=== PATIENT | female | born 1945 | race Caucasian/White ===

== ENCOUNTER → 2016-09-28 | Outpatient (CLI) | payer MEDICARE ==
--- NOTE | 2016-10-02 10:28 | MM ---
Reason for exam: screening (asymptomatic). Last mammogram was performed 1 year and 1 month ago. History: Patient is postmenopausal and history of other cancer. Family history of breast cancer in grandmother at age 80 and breast cancer in 2 cousins. Physical Findings: A clinical breast exam by your physician is recommended on an annual basis and results should be correlated with mammographic findings. MG Screening Mammo w CAD Bilateral CC and MLO view(s) were taken. Prior study comparison: September 03, 2015, bilateral MG screening mammo w CAD. April 21, 2014, bilateral MG screening mammo w CAD. The breast tissue is heterogeneously dense. This may lower the sensitivity of mammography. There is no discrete abnormality. No significant changes when compared with prior studies. ASSESSMENT: Negative, BI-RAD 1 RECOMMENDATION: Routine screening mammogram of both breasts in 1 year.
== END | disposition home or self-care (01) ==
LOC: RADMAMWWP 12:48
PROVIDERS: ATTEND Family Medicine
DX: Z12.31 Encounter for screening mammogram for malignant neoplasm of breast (principal)

== ENCOUNTER → 2017-12-14 | Outpatient (CLI) | payer MEDICARE ==
--- NOTE | 2017-12-17 09:52 | MM ---
Reason for exam: screening (asymptomatic). Last mammogram was performed 1 year and 3 months ago. History: Patient is postmenopausal and history of other cancer. Family history of breast cancer in grandmother at age 80 and breast cancer in 2 cousins. Physical Findings: A clinical breast exam by your physician is recommended on an annual basis and results should be correlated with mammographic findings. MG Screening Mammo w CAD Bilateral CC and MLO view(s) were taken. Prior study comparison: September 28, 2016, bilateral MG screening mammo w CAD. September 03, 2015, bilateral MG screening mammo w CAD. There are scattered fibroglandular densities. No significant changes when compared with prior studies. ASSESSMENT: Benign, BI-RAD 2 RECOMMENDATION: Routine screening mammogram of both breasts in 1 year.
== END | disposition home or self-care (01) ==
LOC: RADMAMWWP 14:13
PROVIDERS: ATTEND Family Medicine
DX: Z12.31 Encounter for screening mammogram for malignant neoplasm of breast (principal)
CPT/HCPCS: 77067

== ENCOUNTER → 2020-04-26 | Outpatient (CLI) | payer MEDICARE ==
--- NOTE | 2020-04-28 09:41 | MM ---
Reason for exam: screening (asymptomatic). Last mammogram was performed 2 years and 4 months ago. History: Patient is postmenopausal and history of other cancer. Family history of breast cancer in grandmother at age 80 and breast cancer in 2 cousins. Physical Findings: A clinical breast exam by your physician is recommended on an annual basis and results should be correlated with mammographic findings. MG 3D Screening Mammo W/Cad Bilateral CC and MLO view(s) were taken. Prior study comparison: December 14, 2017, bilateral MG screening mammo w CAD. September 28, 2016, bilateral MG screening mammo w CAD. There are scattered fibroglandular densities. No significant changes when compared with prior studies. ASSESSMENT: Benign, BI-RAD 2 RECOMMENDATION: Routine screening mammogram of both breasts in 1 year.
== END | disposition home or self-care (01) ==
LOC: RADMAMWWP 14:30
PROVIDERS: ATTEND Nurse Practitioner Family
DX: Z12.31 Encounter for screening mammogram for malignant neoplasm of breast (principal)
CPT/HCPCS: 77063; 77067

== ENCOUNTER → 2021-07-20 | Outpatient (CLI) | payer MEDICARE ==
--- NOTE | 2021-07-20 15:02 | BD ---
EXAMINATION TYPE: Axial Bone Density DATE OF EXAM: 07/20/2021 COMPARISON: NONE CLINICAL HISTORY: Height: 61 Weight: 126.3 FRAX RISK QUESTIONS: Alcohol (3 or more units per day): no Family History (Parent hip fracture): no Glucocorticoids (More than 3mos): no (Ex: prednisone, prednisolone, methylprednisolone, dexamethasone, and hydrocortisone). History of Fracture in Adulthood: yes Secondary Osteoporosis: 1. Type 1 Diabetes: no 2. Hyperthyroidism: no 3. Menopause before 45: no 4. Malnutrition: no 5. Chronic liver disease: no Rheumatoid Arthritis: no Current Tobacco Use: no RISK FACTORS HISTORY OF: Surgery to Spine/Hip(right/left)/Wrist (right/left): no Family History of Osteoporosis: no Active: yes Diet low in dairy products/other sources of calcium: no Postmenopausal woman: yes Lost more than 2 inches in height since high school: no MEDICATIONS: blood pressure, cholesterol meds Additional History: EXAM MEASUREMENTS: Bone mineral densitometry was performed using the [employer] System. Bone mineral density as measured about the Lumbar spine is: ----- L1-L4(G/cm2): 1.077 T Score Values are as follows: ----- L2: -1.0 ----- L3: -0.4 ----- L4: -1.1 ----- L1-L4: -0.9 Bone mineral density has: increased 2.3 % since study of: 10.21.2015 Bone mineral density about the R hip (g/cm2): 0.716 Bone mineral density about the L hip (g/cm2): .0678 T Score values are as follows: -----R Neck: -2.3 -----L Neck: -2.6 -----R Total: -1.7 -----L Total: -1.8 Bone mineral density has: decreased -7.8 % since study of: 10.21.2015 IMPRESSION: Osteoporosis (T Score less than -2.5). There is increased fracture risk and therapy is usually indicated based on age. Re-Screen 1-2 years. NOTE: T-SCORE=SD OF THE YOUNG ADULT MEAN.
--- NOTE | 2021-07-22 11:27 | MM ---
Reason for exam: screening (asymptomatic). Last mammogram was performed 1 year and 3 months ago. History: Patient is postmenopausal and history of other cancer. Family history of breast cancer in grandmother at age 80 and breast cancer in 2 cousins. Physical Findings: A clinical breast exam by your physician is recommended on an annual basis and results should be correlated with mammographic findings. MG 3D Screening Mammo W/Cad Bilateral CC and MLO view(s) were taken. Prior study comparison: April 26, 2020, bilateral MG 3d screening mammo w/cad. December 14, 2017, bilateral MG screening mammo w CAD. There are scattered fibroglandular densities. There is chronic nodularity in the left breast. No significant changes when compared with prior studies. ASSESSMENT: Benign, BI-RAD 2 RECOMMENDATION: Routine screening mammogram of both breasts in 1 year.
== END | disposition home or self-care (01) ==
LOC: RADMAMWWP 13:34
PROVIDERS: ATTEND Family Medicine
DX: Z12.31 Encounter for screening mammogram for malignant neoplasm of breast (principal); M81.0 Age-related osteoporosis without current pathological fracture; M85.89 Other specified disorders of bone density and structure, multiple sites; Z78.0 Asymptomatic menopausal state; Z80.3 Family history of malignant neoplasm of breast
CPT/HCPCS: 77063; 77067; 77080

== ENCOUNTER → 2022-07-21 | Outpatient (CLI) | payer MEDICARE ==
--- NOTE | 2022-07-24 11:51 | MM ---
Reason for Exam: Screening (asymptomatic). Last screening mammogram was performed 12 month(s) ago. Patient History: Menarche at age 13. First Full-Term at age 17. Postmenopausal. Other cancer. Maternal grandmother had breast cancer, age 80. Maternal cousin had breast cancer. Maternal cousin had breast cancer. Niece had breast cancer. Risk Values: Lexie 5 year model risk: 1.3%. NCI Lifetime model risk: 2.6%. Prior Study Comparison: 12/14/2017 Bilateral Screening Mammogram, [facility]. 04/26/2020 Bilateral Screening Mammogram, [facility]. 07/20/2021 Bilateral Screening Mammogram, [facility]. Tissue Density: The breast tissue is heterogeneously dense. This may lower the sensitivity of mammography. Findings: Analyzed By CAD. Benign vascular calcifications present bilaterally. No significant interval changes are evident. There is a stable focal asymmetry within the upper outer quadrant left mid breast. No significant interval change is evident No suspicious groups of microcalcifications, spiculated or lobular masses, architectural distortion or other secondary signs of malignancy are mammographically apparent. Overall Assessment: Benign, BI-RAD 2 Management: Screening Mammogram of both breasts in 1 year. A negative mammogram report should not preclude additional follow up of suspicious palpable abnormalities. Patient should continue monthly self breast exam. A clinical breast exam by your physician is recommended on an annual basis and results should be correlated with mammographic findings. Electronically signed and approved by: Avery Mortensen D.O. Radiologis
== END | disposition home or self-care (01) ==
LOC: RADMAMWWP 12:25
PROVIDERS: ATTEND Family Medicine
DX: Z12.31 Encounter for screening mammogram for malignant neoplasm of breast (principal); Z78.0 Asymptomatic menopausal state; Z80.3 Family history of malignant neoplasm of breast
CPT/HCPCS: 77063; 77067

== ENCOUNTER → 2023-08-22 | Outpatient (CLI) | payer MEDICARE ==
--- NOTE | 2023-08-22 18:29 | BD ---
EXAMINATION TYPE: Axial Bone Density DATE OF EXAM: 08/22/2023 CLINICAL HISTORY: 77 years old Female. ICD-10 CODE: N95.8 MENOPAUSAL AND PERIMENOPAUSAL Height: 61 Weight: 133.6 FRAX RISK QUESTIONS: Alcohol (3 or more units per day): no Family History (Parent hip fracture): no Glucocorticoids (More than 3mos): no (Ex: prednisone, prednisolone, methylprednisolone, dexamethasone, and hydrocortisone). History of Fracture in Adulthood: yes Secondary Osteoporosis: 1. Type 1 Diabetes: no 2. Hyperthyroidism: no 3. Menopause before 45: no 4. Malnutrition: no 5. Chronic liver disease: no Rheumatoid Arthritis: no Current Tobacco Use: no RISK FACTORS HISTORY OF: Surgery to Spine/Hip(right/left)/Wrist (right/left): no Additional History: EXAM MEASUREMENTS: Bone mineral densitometry was performed using the [employer] System. Bone mineral density as measured about the Lumbar spine is: ----- L1-L4(G/cm2): 1.073 T Score Values are as follows: ----- L1: -1.0 ----- L2: -0.7 ----- L3: -0.6 ----- L4: -1.4 ----- L1-L4: -0.9 Z Score Values are as follows: ----- L1: 1.0 ----- L2: 1.2 ----- L3: 1.3 ----- L4: 0.6 ----- L1-L4: 1.1 Bone mineral density has: increased 0.4 % since study of: 07.20.2021 Bone mineral density about the R hip (g/cm2): 0.823 Bone mineral density about the L hip (g/cm2): 0.816 T Score values are as follows: -----R Neck: -2.0 -----L Neck: -2.1 -----R Total: -1.5 -----L Total: -1.5 Z Score values are as follows: -----R Neck: 0.2 -----L Neck: 0.1 -----R Total: 0.5 -----L Total: 0.5 Bone mineral density has: increased 4.6 % since study of: 12.15.2020 FRAX%s: The graph provided illustrates a 22.5% chance for a major osteoporotic fx and a 6.2 % chance for the hips probability for fx in 10 years time. IMPRESSION: Osteopenia (T Score between -2.5 and -1). There is slightly increased risk of fracture and the patient may be considered for treatment. Re-Screen 2-5 years. NOTE: T-SCORE=SD OF THE YOUNG ADULT MEAN.
--- NOTE | 2023-08-24 12:38 | MM ---
Reason for Exam: Screening (asymptomatic). Last mammogram was performed 1 year(s) and 1 month(s) ago. Patient History: Menarche at age 13. First Full-Term at age 17. Postmenopausal. Patient has history of breast feeding. Other cancer. Maternal grandmother had breast cancer, age 80. Maternal cousin had breast cancer. Maternal cousin had breast cancer. Niece had breast cancer. Risk Values: Lexie 5 year model risk: 1.3%. NCI Lifetime model risk: 2.4%. Prior Study Comparison: 04/26/2020 Bilateral Screening Mammogram, [facility]. 07/20/2021 Bilateral Screening Mammogram, [facility]. 07/21/2022 Bilateral MG 3D screening mammo w/cad, [facility]. Tissue Density: The breast tissue is heterogeneously dense. This may lower the sensitivity of mammography. Findings: Analyzed By CAD. There is no suspicious group of microcalcifications or new suspicious mass in either breast. Benign calcifications bilaterally. There is a chronic nodularity in the left breast stable dating back to 2018. Overall Assessment: Benign, BI-RAD 2 Management: Screening Mammogram of both breasts in 1 year. . Patient should continue monthly self-breast exams. A clinical breast exam by your physician is recommended on an annual basis. This exam should not preclude additional follow-up of suspicious palpable abnormalities. Note on Lexie scores and lifetime risk: 1. A Lexie score greater than 3% is considered moderate risk. If this is the case, consider specialist referral to assess eligibility for a risk reducing agent. 2. If overall lifetime risk for the development of breast cancer is 20% or higher, the patient may qualify for future screening with alternating mammogram and breast MRI. Electronically signed and approved by: Carlo Frank M.D. Radiologis
== END | disposition home or self-care (01) ==
LOC: RADBDWWP 11:30
PROVIDERS: ATTEND Internal Medicine
DX: Z12.31 Encounter for screening mammogram for malignant neoplasm of breast (principal); M85.89 Other specified disorders of bone density and structure, multiple sites; N95.8 Other specified menopausal and perimenopausal disorders; Z78.0 Asymptomatic menopausal state; Z80.3 Family history of malignant neoplasm of breast
CPT/HCPCS: 77063; 77067; 77080